=== PATIENT | male | born 1985 | race Caucasian/White ===

== ENCOUNTER 2016-07-19 11:16 | Outpatient (RCR) | payer OTHER | END 2016-10-08 | LOC: WSOH | DX: M25.511 Pain in right shoulder (principal) ==

== ENCOUNTER → 2016-09-09 | Outpatient (REF) | LOC: WSOH 12:24 | DX: Z11.1 Encounter for screening for respiratory tuberculosis (principal) ==

== ENCOUNTER → 2016-09-25 | Outpatient (REF) | LOC: WSOH 08:32 | DX: Z00.00 Encounter for general adult medical examination without abnormal findings (principal) ==

== ENCOUNTER 2018-05-11 08:38 | Emergency (ER) | payer OTHER ==
[~2018-05-11] VITALS: Ht 177.8 cm; Wt 113.6 kg
[2018-05-11 08:45] VITALS: BP 137/82
[2018-05-11] MEDS ORDERED: ADVIL200 MG PO (08:50)
[2018-05-11 09:22] VITALS: PULSE 76; TEMP 98.6
== END 2018-05-11 09:22 | disposition home or self-care (01) ==
LOC: COL.ER 08:38
DX: S76.911A Strain of unspecified muscles, fascia and tendons at thigh level, right thigh, initial encounter (principal); X50.0XXA Overexertion from strenuous movement or load, initial encounter; Y93.64 Activity, baseball